=== PATIENT | female | born 1970 | race Caucasian/White ===

== ENCOUNTER 2019-10-30 13:01 | Outpatient (CLI) | payer MEDICAID ==
[2019-10-30] MEDS ORDERED: caltrate (13:46)
[2019-10-30] MEDS ORDERED: thyroid med (13:46)
[2019-10-30] MEDS ORDERED: omeprazole (13:46)
== END 2019-10-30 23:59 | disposition home or self-care (01) ==
LOC: STAR 13:01
PROVIDERS: ATTEND Internal Medicine Gastroenterology
DX: Z11.59 Encounter for screening for other viral diseases (principal)
CPT/HCPCS: U0001-CS

== ENCOUNTER 2020-06-17 10:48 | Outpatient (CLI) | payer MEDICAID ==
[~2020-06-17 10:48] MED LIST: caltrate; omeprazole; thyroid med
[2020-06-17] MEDS ORDERED: OMEP-110 PO (11:09)
[2020-06-17] MEDS ORDERED: CALC0.25 PO (11:09)
[2020-06-17] MEDS ORDERED: LORA-247 PO (11:09)
[2020-06-17] MEDS ORDERED: LEVO137T3 PO (11:09)
[2020-06-17] MEDS ORDERED: IRON1TAB37 PO (11:09)
[2020-06-17] MEDS ORDERED: CALC1CAP8 PO (11:09)
[2020-06-17] MEDS ORDERED: LOSA25TA25 PO (11:09)
[2020-06-17 12:46] LABS: CHLORIDE 104 mmol/L (98-107)
[2020-06-17 12:55] LABS: ALANINE AMINOTRANSFERASE 27 U/L (12-78); ALBUMIN 3.5 g/dL (3.4-5.0); ALKALINE PHOSPHATASE 166 U/L (45-117); ANION GAP 2 mmol/L (5-15); BILIRUBIN,TOTAL 0.5 mg/dL (0.2-1.0); CALCIUM 7.9 mg/dL (8.5-10.1); TOTAL PROTEIN 7.7 g/dL (6.4-8.2)
== END 2020-06-17 23:59 | disposition home or self-care (01) ==
LOC: STAR 10:48
PROVIDERS: ATTEND Internal Medicine Gastroenterology
DX: Z01.812 Encounter for preprocedural laboratory examination (principal); Z20.828 Contact with and (suspected) exposure to other viral communicable diseases; D13.1 Benign neoplasm of stomach
CPT/HCPCS: 80053; 87635

== ENCOUNTER 2020-06-23 07:56 | Day surgery (SDC) | payer MEDICAID ==
[~2020-06-23] VITALS: Ht 160 cm; Wt 90.2 kg
[~2020-06-23 07:56] MED LIST changes: +CALC0.25 PO; +CALC1CAP8 PO; +IRON1TAB37 PO; +LEVO137T3 PO; +LORA-247 PO; +LOSA25TA25 PO; +OMEP-110 PO
[2020-06-23 08:17] VITALS: BP 126/88
[2020-06-23] MEDS ORDERED: CHLORHEXIDINE 15 ML UDC ONE (08:25)
[2020-06-23] MEDS ORDERED: LACTATED RINGERS 1,000 ML IV SCH (08:30)
[2020-06-23] MEDS ORDERED: CHLORHEXIDINE 15 ML UDC MM ONE (08:30)
[2020-06-23] MEDS ORDERED: MIDAZOLAM 1 MG/ML, 2ML ONE (09:00)
[2020-06-23] MEDS ORDERED: FENTANYL PF 100 MCG/2ML ONE (09:00)
[2020-06-23] MEDS ORDERED: ONDANSETRON 2MG/ML, 2ML IVPush PRN (09:30)
[2020-06-23] MEDS ORDERED: LORazepam 2 MG/ML, 1ML IVPush PRN (09:30)
[2020-06-23] MEDS ORDERED: HALOPERIDOL 5 MG/ML IV PRN (09:30)
[2020-06-23] MEDS ORDERED: PROMETHAZINE 12.5 MG SUPP PR PRN (09:30)
[2020-06-23] MEDS ORDERED: EPHEDRINE 50 MG/ML, 1ML IVPush PRN (09:30)
[2020-06-23] MEDS ORDERED: ACETAMINOPHEN 325 MG TABLET PO PRN (09:30)
[2020-06-23] MEDS ORDERED: OXYcodone 5 MG/5 ML ORAL.SOL UDC PO PRN (09:30)
[2020-06-23] MEDS ORDERED: FENTANYL PF 100 MCG/2ML IV PRN (09:30)
[2020-06-23] MEDS ORDERED: HYDROmorphone 1 MG/ML, 1ML INJ IVPush PRN (09:30)
[2020-06-23] MEDS ORDERED: hydrALAzine 20 MG/ML, 1ML IV PRN (09:30)
[2020-06-23] MEDS ORDERED: LABETALOL 5MG/ML, 20ML IV PRN (09:30)
[2020-06-23] MEDS ORDERED: METOPROLOL 1 MG/ML, 5ML IV PRN (09:30)
[2020-06-23] MEDS ORDERED: METOCLOPRAMIDE 5 MG/ML, 2ML IVPush PRN (09:30)
[2020-06-23] MEDS ORDERED: DEXAMETHASONE 4 MG/ML, 1ML ONE (10:09)
[2020-06-23] MEDS ORDERED: ROCURONIUM 10 MG/ML,10ML ONE (10:09)
[2020-06-23] MEDS ORDERED: ONDANSETRON 2MG/ML, 2ML ONE (10:09)
[2020-06-23] MEDS ORDERED: SUCCINYLCHOLINE 20 MG/ML, 10ML ONE (10:09)
[2020-06-23] MEDS ORDERED: PROPOFOL 10 MG/ML, 20ML ONE (10:09)
[2020-06-23] MEDS ORDERED: PHENYLEPHRINE 10 MG/ML ONE (10:09)
== END 2020-06-23 13:00 | disposition home or self-care (01) ==
LOC: OUT 07:56
PROVIDERS: ATTEND Internal Medicine Gastroenterology
DX: K31.89 Other diseases of stomach and duodenum (principal); R13.10 Dysphagia, unspecified; K80.20 Calculus of gallbladder without cholecystitis without obstruction; I10 Essential (primary) hypertension; E03.9 Hypothyroidism, unspecified; K21.9 Gastro-esophageal reflux disease without esophagitis; E66.9 Obesity, unspecified; Z85.850 Personal history of malignant neoplasm of thyroid
CPT/HCPCS: 43237; 43239; 43254; 88305; A4648; J0330; J1100; J2250; J2370; J2405; J2704; J3010; J7120